=== PATIENT | male | born 1995 | race Caucasian/White ===

== ENCOUNTER 2020-08-04 13:37 | Observation (INO) ==
[2020-08-04] MEDS ORDERED: 0.9 % Sodium Chloride 1,000 ML IVC ONE (14:21)
[2020-08-04] MEDS ORDERED: *HR* LORazepam 2 MG/ML VIAL IVP PRN ×3 (14:23)
[2020-08-04 14:32] LABS: Bilirubin,Urine Negative (Negative); Blood,Urine Negative (Negative); Clarity,Urine Clear (Clear); Color,Urine Light-Yellow (Yellow); Glucose,Urine (UA) Normal (Normal); Ketones,Urine Negative (Negative); Leukocyte Esterase,Urine Negative (Negative); Nitrite,Urine Negative (Negative); PH,Urine 5.5 pH Units (5.0-8.0); Protein,Urine Negative (Neg-Trace); Specific Gravity,Urine 1.013 (1.010-1.025); Urobilinogen,Urine Normal (Normal)
[2020-08-04 14:44] LABS: Basophils # 0.1 K/mcL (0.0-0.2); Basophils % 0.6 %; Eosinophils # 0.2 K/mcL (0.0-0.6); Eosinophils % 1.5 %; Hemoglobin 13.9 g/dL (12.9-16.9); Immature Granulocytes % 0.3 % (0-4); Lymphocytes # 2.7 K/mcL (0.6-4.6); Lymphocytes % 18.5 %; Mean Corpuscular HGB Conc 33.9 g/dL (31.6-35.5); Mean Corpuscular Hemoglobin 31.2 pg (28.0-33.3); Mean Corpuscular Volume 91.9 fL (83.0-100.0); Mean Platelet Volume 10.1 fL (9.4-12.4); Monocytes # 1.3 K/mcL (0.0-1.3); Monocytes % 9.2 %; Neutrophils # 10.2 K/mcL (1.6-8.9); Platelet Count 204 K/mcL (140-400); Red Blood Count 4.46 M/mcL (4.19-5.50); Red Cell Distribution Width 13.2 % (11.5-14.5); Segmented Neutrophils % 69.9 %; White Blood Count 14.6 K/mcL (4.3-11.1)
[2020-08-04] MEDS: Thiamine (B-1) 100 MG TABLET PO SCH (14:53)
[2020-08-04] MEDS: Renal Vitamin 1 CAP CAPSULE PO SCH (14:53)
[2020-08-04 14:55] LABS: Amphetamine Screen,Urine Negative ng/mL (Cutoff=1000); Barbiturate Screen,Urine Negative ng/mL (Cutoff=200); Benzodiazepines Screen,Urine Negative ng/mL (Cutoff=200); Cannabinoid Screen,Urine Negative ng/mL (Cutoff = 50); Cocaine Screen,Urine Negative ng/mL (Cutoff= 300); Opiate Screen,Urine Negative ng/mL (Cutoff=300); Phencyclidine Screen,Urine Negative ng/mL (Cutoff=25)
[2020-08-04 15:08] LABS: INR 0.9; Prothrombin Time 10.2 Seconds (9.4-12.1)
[2020-08-04 15:21] LABS: Alanine Aminotransferase 12 Units/L (7-52); Albumin 4.5 g/dL (3.5-5.7); Albumin/Globulin Ratio 1.7 (1.1-2.2); Alkaline Phosphatase 48 Units/L (34-104); Aspartate Amino Transferase 18 Units/L (13-39); BUN/Creatinine Ratio 13 (6-26); Bilirubin,Total 0.2 mg/dL (0.3-1.0); Blood Urea Nitrogen 10 mg/dL (6-20); Calcium 8.8 mg/dL (8.6-10.3); Carbon Dioxide 20 mEq/L (23-29); Chloride 108 mEq/L (98-107); Ethanol 78 mg/dL (Less than 10); Globulin 2.7 g/dL (2.4-3.5); Glucose 93 mg/dL (70-105); Lipase 22 Units/L (11-82); Osmolality,Calculated 287 (280-300); Phosphorous 3.1 mg/dL (2.7-4.5); Potassium 3.6 mEq/L (3.5-5.1); Sodium 139 mEq/L (136-145); Total Protein 7.2 g/dL (6.4-8.9); eGFR For African Americans > 60 (> 60); eGFR For Non-African Americans > 60 (> 60)
[2020-08-04 15:28] LABS: Troponin I < 0.03 ng/mL (< 0.04)
[2020-08-04] MEDS ORDERED: *HR* Promethazine 25 MG/ML VIAL IVP PRN (16:12)
[2020-08-04] MEDS ORDERED: MOM Conc 10 ML UD.LIQ PO PRN (16:12)
[2020-08-04] MEDS ORDERED: Ondansetron 4 MG/2 ML VIAL IVP PRN (16:12)
[2020-08-04] MEDS ORDERED: Acetaminophen 325 MG TABLET PO PRN (16:12)
[2020-08-04] MEDS ORDERED: *HR* HYDROcodone/Acet 5/325 mg TABLET PO PRN (16:12)
[2020-08-04] MEDS ORDERED: Naloxone 0.4 MG/ML INJ IVP PRN (16:12)
[2020-08-04] MEDS: *HR* Heparin 5,000 UNIT/ML VIAL SQ SCH (17:43)
[2020-08-04] MEDS: Folic Acid 1 MG TABLET PO SCH (17:43)
[2020-08-04] MEDS: Nicotine 21 MG PATCH.TD24 TD SCH (17:43)
[2020-08-04] MEDS ORDERED: QUEtiapine Fumarate 100 MG TABLET PO ONE (21:54)
[2020-08-05 03:28] LABS: Basophils # 0.1 K/mcL (0.0-0.2); Basophils % 0.7 %; Eosinophils # 0.3 K/mcL (0.0-0.6); Eosinophils % 3.1 %; Hematocrit 42.4 % (37.5-50.1); Hemoglobin 14.2 g/dL (12.9-16.9); Immature Granulocytes % 0.2 % (0-4); Lymphocytes # 3.4 K/mcL (0.6-4.6); Lymphocytes % 35.9 %; Mean Corpuscular HGB Conc 33.5 g/dL (31.6-35.5); Mean Corpuscular Hemoglobin 31.1 pg (28.0-33.3); Mean Platelet Volume 10.6 fL (9.4-12.4); Monocytes # 0.9 K/mcL (0.0-1.3); Monocytes % 9.3 %; Neutrophils # 4.8 K/mcL (1.6-8.9); Platelet Count 203 K/mcL (140-400); Red Blood Count 4.56 M/mcL (4.19-5.50); Red Cell Distribution Width 13.4 % (11.5-14.5); Segmented Neutrophils % 50.8 %; White Blood Count 9.4 K/mcL (4.3-11.1)
[2020-08-05 03:43] LABS: BUN/Creatinine Ratio 18 (6-26); Blood Urea Nitrogen 14 mg/dL (6-20); Carbon Dioxide 21 mEq/L (23-29); Chloride 108 mEq/L (98-107); Glucose 88 mg/dL (70-105); Osmolality,Calculated 286 (280-300); Potassium 3.9 mEq/L (3.5-5.1); Sodium 138 mEq/L (136-145); eGFR For African Americans > 60 (> 60); eGFR For Non-African Americans > 60 (> 60)
[2020-08-05] MEDS: *HR* Heparin 5,000 UNIT/ML VIAL SQ SCH ×2 (06:17→17:30)
[2020-08-05] MEDS: Thiamine (B-1) 100 MG TABLET PO SCH (08:31)
[2020-08-05] MEDS: Nicotine 21 MG PATCH.TD24 TD SCH (08:31)
[2020-08-05] MEDS: Folic Acid 1 MG TABLET PO SCH (08:31)
[2020-08-05] MEDS: Renal Vitamin 1 CAP CAPSULE PO SCH (08:31)
[2020-08-05] MEDS: QUEtiapine Fumarate 100 MG TABLET PO SCH (20:58)
[2020-08-05] MEDS ORDERED: Nicotine 2 MG GUM BC PRN (21:54)
[2020-08-06 01:46] LABS: Hematocrit 43.2 % (37.5-50.1); Hemoglobin 14.6 g/dL (12.9-16.9); Mean Corpuscular HGB Conc 33.8 g/dL (31.6-35.5); Mean Corpuscular Hemoglobin 31.3 pg (28.0-33.3); Mean Corpuscular Volume 92.5 fL (83.0-100.0); Mean Platelet Volume 10.4 fL (9.4-12.4); Platelet Count 199 K/mcL (140-400); Red Blood Count 4.67 M/mcL (4.19-5.50); Red Cell Distribution Width 13.4 % (11.5-14.5); White Blood Count 8.7 K/mcL (4.3-11.1)
[2020-08-06 02:09] LABS: BUN/Creatinine Ratio 19 (6-26); Blood Urea Nitrogen 15 mg/dL (6-20); Calcium 9.4 mg/dL (8.6-10.3); Carbon Dioxide 21 mEq/L (23-29); Chloride 108 mEq/L (98-107); Glucose 96 mg/dL (70-105); Osmolality,Calculated 287 (280-300); Potassium 4.1 mEq/L (3.5-5.1); Sodium 138 mEq/L (136-145); eGFR For African Americans > 60 (> 60); eGFR For Non-African Americans > 60 (> 60)
[2020-08-06] MEDS: *HR* Heparin 5,000 UNIT/ML VIAL SQ SCH ×2 (05:10→16:37)
[2020-08-06] MEDS: Nicotine 21 MG PATCH.TD24 TD SCH (07:59)
[2020-08-06] MEDS: Renal Vitamin 1 CAP CAPSULE PO SCH (08:00)
[2020-08-06] MEDS: Thiamine (B-1) 100 MG TABLET PO SCH (08:00)
[2020-08-06] MEDS: Folic Acid 1 MG TABLET PO SCH (08:00)
[2020-08-06] MEDS: QUEtiapine Fumarate 100 MG TABLET PO SCH (19:57)
[2020-08-07] MEDS: *HR* Heparin 5,000 UNIT/ML VIAL SQ SCH (00:29)
[2020-08-07 06:41] VITALS: BP 116/73
[2020-08-07] MEDS: Nicotine 21 MG PATCH.TD24 TD SCH (08:40)
[2020-08-07] MEDS: Folic Acid 1 MG TABLET PO SCH (08:40)
[2020-08-07] MEDS: Thiamine (B-1) 100 MG TABLET PO SCH (08:40)
[2020-08-07] MEDS: Renal Vitamin 1 CAP CAPSULE PO SCH (08:40)
== END 2020-08-07 09:51 | disposition home or self-care (01) ==
LOC: EMEROOARM 13:37 → 3BNU 13:37
PROVIDERS: ADMIT Internal Medicine; ATTEND Internal Medicine